=== PATIENT | female | born 1970 | race Caucasian/White ===

== ENCOUNTER 2019-12-01 09:40 | Inpatient (IN) | payer OTHER ==
[~2019-12-01] VITALS: Ht 162.6 cm; Wt 100.0 kg
[2019-12-01] MEDS ORDERED: PHENY100 PO (10:09)
[2019-12-01] MEDS ORDERED: PHEN32.46 PO (10:09)
[2019-12-01] MEDS ORDERED: METF-960 PO (10:09)
[2019-12-01] MEDS ORDERED: 0.9% SODIUM CHLORIDE 10 ML SYRINGE IVP PRN (10:30)
[2019-12-01] MEDS ORDERED: ACETAMINOPHEN 325 MG TABLET PO PRN ×2 (10:30→17:30)
[2019-12-01] MEDS ORDERED: ONDANSETRON HCL 4 MG/2 ML VIAL IVP PRN ×2 (10:30→17:30)
[2019-12-01 10:47] LABS: BASOPHILS % (AUTO) 0.6 % (0.0-2.0); EOSINOPHILS % (AUTO) 1.3 % (1.0-6.0); HEMOGLOBIN 14.8 g/dL (12.0-16.0); LYMPHOCYTES % (AUTO) 19.3 % (22.0-44.0); MEAN CORPUSCULAR HEMOGLOBIN 31.8 pg (26.0-34.0); MEAN CORPUSCULAR HGB CONC 33.6 G/dL (31.0-37.0); MEAN CORPUSCULAR VOLUME 94 fL (80-100); MONOCYTES # (AUTO) 0.6 K/uL (0.1-1.0); NEUTROPHILS # (AUTO) 7.5 K/uL (1.8-7.7); NEUTROPHILS % (AUTO) 72.8 % (40.0-70.0); PLATELET COUNT (AUTO) 337 K/uL (150-450); RED BLOOD CELL COUNT(AUTO) 4.66 MIL/uL (4.00-5.20); RED CELL DISTRIBUTION WIDTH 13.8 % (11.5-14.5)
[2019-12-01 10:55] LABS: ANION GAP 8 mmol/L (8-16); CALCIUM, TOTAL 8.6 mg/dL (8.8-10.5); CARBON DIOXIDE 30 mmol/L (22-29); CHLORIDE 104 mmol/L (98-107); CREATININE 0.84 mg/dL (0.60-1.30); GLOMERULAR FILTR. RATE CALC > 60 mL/min (>60); GLUCOSE,RANDOM 137 mg/dL (70-110); POTASSIUM 3.9 mmol/L (3.5-5.1); SODIUM SERUM 142 mmol/L (136-145); UREA NITROGEN, BLOOD 11 mg/dL (7-18)
[2019-12-01 11:03] LABS: ALANINE AMINOTRANSFERASE 37 U/L (12-78); ALBUMIN 3.4 g/dL (3.4-5.0); ALKALINE PHOSPHATASE 102 U/L (46-116); ASPARTATE AMINOTRANSFERASE 25 U/L (15-37); BILIRUBIN,TOTAL 0.6 mg/dL (0.1-1.0); TOTAL PROTEIN, SERUM 7.4 g/dL (6.4-8.2)
[2019-12-01 12:26] VITALS: BP 130/70
[2019-12-01 15:24] LABS: GLUCOMETER DEV NAME(LOC) 6N.2; GLUCOSE,POINT OF CARE 139 MG/DL (70-110)
[2019-12-01 15:51] VITALS: BP 114/65
[2019-12-01] MEDS ORDERED: MAGNESIUM HYDROXIDE SUSPENSION 30 ML UDCUP PO PRN (17:30)
[2019-12-01] MEDS ORDERED: ALBUTEROL SULFATE 2.5 MG/0.5 ML NEB SOLUTION NEB PRN (17:30)
[2019-12-01] MEDS ORDERED: IPRATROPIUM BROMIDE 0.5 MG/2.5 ML NEB SOLUTION NEB PRN (17:30)
[2019-12-01] MEDS ORDERED: BISACODYL 10 MG RECTAL RECTAL SUPPOSITORY PR PRN (17:30)
[2019-12-01] MEDS ORDERED: DEXTROSE 50%-WATER 25 GM/50 ML SYRINGE IVP PRN (17:45)
[2019-12-01] MEDS: INSULIN LISPRO 100 UNITS/ML SQ PRN ×2 (18:05→20:36)
[2019-12-01] MEDS: MetFORMIN HCL 500 MG TABLET PO SCH (18:11)
[2019-12-01 19:31] LABS: APPEARANCE,URINE CLOUDY (CLEAR); BILIRUBIN,URINE NEGATIVE (NEGATIVE); GLUCOSE, URINE (UA) NEGATIVE (NEGATIVE); KETONES,URINE NEGATIVE (NEGATIVE); LEUKOCYTE ESTERASE ,URINE NEGATIVE (NEGATIVE); NITRATE,URINE NEGATIVE (NEGATIVE); OCCULT BLOOD,URINE TRACE (NEGATIVE); PROTEIN,URINE NEGATIVE (NEGATIVE)
[2019-12-01 19:32] LABS: AMPHET/METH SCREEN,URINE POSITIVE (NEGATIVE); BARBITURATE SCREEN, URINE NEGATIVE (NEGATIVE); BENZODIAZEPINES SCREEN,URINE NEGATIVE (NEGATIVE); CANNABINOID SCREEN,URINE POSITIVE (NEGATIVE); COCAINE SCREEN,URINE NEGATIVE (NEGATIVE); METHADONE SCREEN, URINE NEGATIVE (NEGATIVE); OPIATE SCREEN,URINE NEGATIVE (NEGATIVE)
[2019-12-01 19:33] LABS: PHENCYCLIDINE SCREEN,URINE NEGATIVE (NEGATIVE)
[2019-12-01 19:40] LABS: BACTERIA,URINE Many /HPF (None Seen); SQUAMOUS EPITHELIAL CELL,UR Moderate /LPF (None Seen)
[2019-12-01 20:11] VITALS: BP 120/68
[2019-12-01] MEDS: DOCUSATE SODIUM 100 MG CAPSULE PO SCH (20:32)
[2019-12-01 20:33] LABS: GLUCOMETER DEV NAME(LOC) 6N.2; GLUCOSE,POINT OF CARE 125 MG/DL (70-110)
[2019-12-01 22:28] LABS: GLUCOMETER DEV NAME(LOC) 6N.2; GLUCOSE,POINT OF CARE 199 MG/DL (70-110)
[2019-12-01] MEDS: HEPARIN SODIUM,PORCINE 5,000 UNITS/ML VIAL SQ SCH (23:38)
[2019-12-01 23:44] VITALS: BP 122/58
[2019-12-02 05:00] VITALS: BP 123/77
[2019-12-02] MEDS: INSULIN LISPRO 100 UNITS/ML SQ PRN (06:47)
[2019-12-02 07:32] VITALS: BP 102/74
[2019-12-02] MEDS: MetFORMIN HCL 500 MG TABLET PO SCH ×2 (08:03→18:18)
[2019-12-02] MEDS: PHENYTOIN SODIUM 100 MG ER CAPSULE PO SCH (08:03)
[2019-12-02] MEDS: PHENobarbital 30 MG TABLET PO SCH (08:03)
[2019-12-02] MEDS: DOCUSATE SODIUM 100 MG CAPSULE PO SCH ×2 (08:03→20:06)
[2019-12-02] MEDS: HEPARIN SODIUM,PORCINE 5,000 UNITS/ML VIAL SQ SCH ×3 (08:04→23:58)
[2019-12-02 08:16] LABS: GLUCOMETER DEV NAME(LOC) 6N.1; GLUCOSE,POINT OF CARE 156 MG/DL (70-110)
[2019-12-02 12:10] LABS: GLUCOMETER DEV NAME(LOC) 6N.1; GLUCOSE,POINT OF CARE 88 MG/DL (70-110)
[2019-12-02 15:04] VITALS: BP 128/82
[2019-12-02 20:00] VITALS: BP 94/55
[2019-12-02] MEDS: RisperiDONE 1 MG TABLET PO SCH (20:07)
[2019-12-03 01:00] LABS: GLUCOMETER DEV NAME(LOC) 6N.1; GLUCOSE,POINT OF CARE 119 MG/DL (70-110)
[2019-12-03 01:00] LABS: GLUCOMETER DEV NAME(LOC) 6N.1; GLUCOSE,POINT OF CARE 138 MG/DL (70-110)
[2019-12-03 04:00] VITALS: BP 123/79
[2019-12-03] MEDS: INSULIN LISPRO 100 UNITS/ML SQ PRN ×4 (05:50→20:19)
[2019-12-03 07:38] VITALS: BP 106/62
[2019-12-03] MEDS: PHENYTOIN SODIUM 100 MG ER CAPSULE PO SCH (08:24)
[2019-12-03] MEDS: MetFORMIN HCL 500 MG TABLET PO SCH ×2 (08:24→17:03)
[2019-12-03] MEDS: DOCUSATE SODIUM 100 MG CAPSULE PO SCH ×2 (08:24→20:21)
[2019-12-03] MEDS: HEPARIN SODIUM,PORCINE 5,000 UNITS/ML VIAL SQ SCH ×2 (08:24→16:16)
[2019-12-03] MEDS: PHENobarbital 30 MG TABLET PO SCH (08:28)
[2019-12-03 11:04] LABS: GLUCOMETER DEV NAME(LOC) 6N.2; GLUCOSE,POINT OF CARE 157 MG/DL (70-110)
[2019-12-03 15:38] VITALS: BP 116/70
[2019-12-03 15:54] LABS: BASOPHILS % (AUTO) 1.1 % (0.0-2.0); EOSINOPHILS % (AUTO) 2.8 % (1.0-6.0); HEMOGLOBIN 13.9 g/dL (12.0-16.0); LYMPHOCYTES # (AUTO) 2.8 K/uL (1.0-4.8); LYMPHOCYTES % (AUTO) 33.9 % (22.0-44.0); MEAN CORPUSCULAR HEMOGLOBIN 31.3 pg (26.0-34.0); MEAN CORPUSCULAR HGB CONC 33.2 G/dL (31.0-37.0); MEAN CORPUSCULAR VOLUME 95 fL (80-100); MONOCYTES # (AUTO) 0.6 K/uL (0.1-1.0); MONOCYTES % (AUTO) 6.7 % (2.0-9.0); NEUTROPHILS # (AUTO) 4.6 K/uL (1.8-7.7); NEUTROPHILS % (AUTO) 55.5 % (40.0-70.0); PLATELET COUNT (AUTO) 321 K/uL (150-450); RED BLOOD CELL COUNT(AUTO) 4.44 MIL/uL (4.00-5.20); RED CELL DISTRIBUTION WIDTH 14.1 % (11.5-14.5)
[2019-12-03 19:30] VITALS: BP 124/69
[2019-12-03] MEDS: RisperiDONE 1 MG TABLET PO SCH (20:19)
[2019-12-03] MEDS: CEPHALEXIN MONOHYDRATE 500 MG CAPSULE PO SCH (20:19)
[2019-12-04] MEDS: HEPARIN SODIUM,PORCINE 5,000 UNITS/ML VIAL SQ SCH ×3 (00:22→16:07)
[2019-12-04 07:50] VITALS: BP 112/72
[2019-12-04 08:09] LABS: GLUCOMETER DEV NAME(LOC) 6N.2; GLUCOSE,POINT OF CARE 119 MG/DL (70-110)
[2019-12-04 08:09] LABS: GLUCOMETER DEV NAME(LOC) 6N.2; GLUCOSE,POINT OF CARE 150 MG/DL (70-110)
[2019-12-04] MEDS: DOCUSATE SODIUM 100 MG CAPSULE PO SCH ×2 (08:43→20:20)
[2019-12-04] MEDS: PHENobarbital 30 MG TABLET PO SCH (08:43)
[2019-12-04] MEDS: MetFORMIN HCL 500 MG TABLET PO SCH ×2 (08:43→17:15)
[2019-12-04] MEDS: CEPHALEXIN MONOHYDRATE 500 MG CAPSULE PO SCH ×2 (08:43→20:20)
[2019-12-04] MEDS: PHENYTOIN SODIUM 100 MG ER CAPSULE PO SCH (09:00)
[2019-12-04] MEDS: INSULIN LISPRO 100 UNITS/ML SQ PRN ×2 (12:00→17:15)
[2019-12-04 15:10] VITALS: BP_SYST 117; BP_DIAS 67; BP_DIAS 7
[2019-12-04 17:28] LABS: GLUCOMETER DEV NAME(LOC) 6N.1; GLUCOSE,POINT OF CARE 121 MG/DL (70-110)
[2019-12-04 17:28] LABS: GLUCOMETER DEV NAME(LOC) 6N.1; GLUCOSE,POINT OF CARE 104 MG/DL (70-110)
[2019-12-04 20:00] VITALS: BP 118/67
[2019-12-04 20:07] LABS: GLUCOMETER DEV NAME(LOC) 6N.2; GLUCOSE,POINT OF CARE 99 MG/DL (70-110)
[2019-12-04 20:07] LABS: GLUCOMETER DEV NAME(LOC) 6N.2; GLUCOSE,POINT OF CARE 90 MG/DL (70-110)
[2019-12-04] MEDS: RisperiDONE 1 MG TABLET PO SCH (20:20)
[2019-12-04 22:14] LABS: GLUCOMETER DEV NAME(LOC) 6N.2; GLUCOSE,POINT OF CARE 133 MG/DL (70-110)
[2019-12-05] MEDS: HEPARIN SODIUM,PORCINE 5,000 UNITS/ML VIAL SQ SCH ×4 (00:01→23:24)
[2019-12-05 04:00] VITALS: BP 115/76
[2019-12-05 08:00] VITALS: BP 108/71
[2019-12-05] MEDS: MetFORMIN HCL 500 MG TABLET PO SCH ×2 (09:00→18:13)
[2019-12-05] MEDS: CEPHALEXIN MONOHYDRATE 500 MG CAPSULE PO SCH ×2 (09:00→19:55)
[2019-12-05] MEDS: PHENobarbital 30 MG TABLET PO SCH (09:00)
[2019-12-05] MEDS: DOCUSATE SODIUM 100 MG CAPSULE PO SCH ×2 (09:01→19:57)
[2019-12-05] MEDS: PHENYTOIN SODIUM 100 MG ER CAPSULE PO SCH (09:01)
[2019-12-05 19:14] VITALS: BP 106/65
[2019-12-05 19:28] LABS: GLUCOMETER DEV NAME(LOC) 6N.1; GLUCOSE,POINT OF CARE 116 MG/DL (70-110)
[2019-12-05 19:28] LABS: GLUCOMETER DEV NAME(LOC) 6N.1; GLUCOSE,POINT OF CARE 138 MG/DL (70-110)
[2019-12-05 19:28] LABS: GLUCOMETER DEV NAME(LOC) 6N.1; GLUCOSE,POINT OF CARE 95 MG/DL (70-110)
[2019-12-05] MEDS: RisperiDONE 1 MG TABLET PO SCH (19:55)
[2019-12-06 03:33] VITALS: BP 115/69
[2019-12-06 06:11] LABS: GLUCOMETER DEV NAME(LOC) 6N.2; GLUCOSE,POINT OF CARE 119 MG/DL (70-110)
[2019-12-06 07:56] VITALS: BP 127/73
[2019-12-06] MEDS: PHENYTOIN SODIUM 100 MG ER CAPSULE PO SCH (08:29)
[2019-12-06] MEDS: HEPARIN SODIUM,PORCINE 5,000 UNITS/ML VIAL SQ SCH ×2 (08:29→17:44)
[2019-12-06] MEDS: PHENobarbital 30 MG TABLET PO SCH (08:30)
[2019-12-06] MEDS: MetFORMIN HCL 500 MG TABLET PO SCH ×2 (08:30→17:43)
[2019-12-06] MEDS: DOCUSATE SODIUM 100 MG CAPSULE PO SCH (08:30)
[2019-12-06] MEDS: CEPHALEXIN MONOHYDRATE 500 MG CAPSULE PO SCH ×2 (08:36→20:11)
[2019-12-06] MEDS ORDERED: PHEN30TA41 PO (11:14)
[2019-12-06] MEDS: INSULIN LISPRO 100 UNITS/ML SQ PRN ×3 (12:10→20:11)
[2019-12-06 16:28] VITALS: BP 104/70
[2019-12-06 19:56] LABS: GLUCOMETER DEV NAME(LOC) 6N.2; GLUCOSE,POINT OF CARE 140 MG/DL (70-110)
[2019-12-06 19:56] LABS: GLUCOMETER DEV NAME(LOC) 6N.2; GLUCOSE,POINT OF CARE 99 MG/DL (70-110)
[2019-12-06 19:56] LABS: GLUCOMETER DEV NAME(LOC) 6N.2; GLUCOSE,POINT OF CARE 87 MG/DL (70-110)
[2019-12-06 20:00] VITALS: BP 119/75
[2019-12-06] MEDS: ZOLPIDEM TARTRATE 5 MG TABLET PO PRN (20:11)
[2019-12-06] MEDS: RisperiDONE 1 MG TABLET PO SCH (20:11)
[2019-12-07] MEDS: HEPARIN SODIUM,PORCINE 5,000 UNITS/ML VIAL SQ SCH ×3 (00:26→17:09)
[2019-12-07 04:58] VITALS: BP 111/65
[2019-12-07 07:49] VITALS: BP 108/70
[2019-12-07] MEDS: PHENobarbital 30 MG TABLET PO SCH (08:14)
[2019-12-07] MEDS: PHENYTOIN SODIUM 100 MG ER CAPSULE PO SCH (08:14)
[2019-12-07] MEDS: MetFORMIN HCL 500 MG TABLET PO SCH ×2 (08:14→17:09)
[2019-12-07] MEDS: CEPHALEXIN MONOHYDRATE 500 MG CAPSULE PO SCH ×2 (08:14→21:03)
[2019-12-07] MEDS: RisperiDONE 1 MG TABLET PO SCH ×2 (08:14→21:03)
[2019-12-07 12:07] LABS: GLUCOMETER DEV NAME(LOC) 6N.1; GLUCOSE,POINT OF CARE 144 MG/DL (70-110)
[2019-12-07 12:07] LABS: GLUCOMETER DEV NAME(LOC) 6N.1; GLUCOSE,POINT OF CARE 119 MG/DL (70-110)
[2019-12-07 13:22] LABS: GLUCOMETER DEV NAME(LOC) 6N.2; GLUCOSE,POINT OF CARE 123 MG/DL (70-110)
[2019-12-07 16:01] VITALS: BP 95/60
[2019-12-07 18:52] LABS: GLUCOMETER DEV NAME(LOC) 6N.1; GLUCOSE,POINT OF CARE 101 MG/DL (70-110)
[2019-12-07 19:38] VITALS: BP 105/68
[2019-12-08] MEDS: HEPARIN SODIUM,PORCINE 5,000 UNITS/ML VIAL SQ SCH ×3 (00:12→16:36)
[2019-12-08 04:19] VITALS: BP 103/60
[2019-12-08] MEDS: RisperiDONE 1 MG TABLET PO SCH ×2 (08:06→20:30)
[2019-12-08] MEDS: PHENYTOIN SODIUM 100 MG ER CAPSULE PO SCH (08:06)
[2019-12-08] MEDS: CEPHALEXIN MONOHYDRATE 500 MG CAPSULE PO SCH ×2 (08:06→20:30)
[2019-12-08] MEDS: MetFORMIN HCL 500 MG TABLET PO SCH ×2 (08:06→17:10)
[2019-12-08] MEDS: PHENobarbital 30 MG TABLET PO SCH (08:06)
[2019-12-08 08:18] VITALS: BP 118/71
[2019-12-08] MEDS ORDERED: LORazepam 2 MG/ML VIAL IVP PRN (14:15)
[2019-12-08 15:53] VITALS: BP_SYST 131; BP_DIAS 3; BP_DIAS 63
[2019-12-08 17:17] LABS: GLUCOMETER DEV NAME(LOC) 6N.2; GLUCOSE,POINT OF CARE 114 MG/DL (70-110)
[2019-12-08 20:23] VITALS: BP 110/63
[2019-12-09] MEDS: HEPARIN SODIUM,PORCINE 5,000 UNITS/ML VIAL SQ SCH ×3 (00:15→16:40)
[2019-12-09 04:35] VITALS: BP 109/60
[2019-12-09 06:07] LABS: GLUCOMETER DEV NAME(LOC) 6N.1; GLUCOSE,POINT OF CARE 95 MG/DL (70-110)
[2019-12-09 06:08] LABS: GLUCOMETER DEV NAME(LOC) 6N.1; GLUCOSE,POINT OF CARE 135 MG/DL (70-110)
[2019-12-09 06:08] LABS: GLUCOMETER DEV NAME(LOC) 6N.1; GLUCOSE,POINT OF CARE 117 MG/DL (70-110)
[2019-12-09] MEDS: MetFORMIN HCL 500 MG TABLET PO SCH ×2 (08:14→17:13)
[2019-12-09] MEDS: PHENYTOIN SODIUM 100 MG ER CAPSULE PO SCH (08:14)
[2019-12-09] MEDS: PHENobarbital 30 MG TABLET PO SCH (08:14)
[2019-12-09] MEDS: RisperiDONE 1 MG TABLET PO SCH ×2 (08:14→19:59)
[2019-12-09 08:15] VITALS: BP 101/65
[2019-12-09] MEDS: INSULIN LISPRO 100 UNITS/ML SQ PRN (11:58)
[2019-12-09 15:15] VITALS: BP 128/76
[2019-12-09] MEDS ORDERED: RISP1 PO (16:05)
[2019-12-09 19:17] LABS: GLUCOMETER DEV NAME(LOC) 6N.1; GLUCOSE,POINT OF CARE 104 MG/DL (70-110)
[2019-12-09] MEDS: ZOLPIDEM TARTRATE 5 MG TABLET PO PRN (19:59)
[2019-12-09 20:00] VITALS: BP 107/62
[2019-12-09 20:58] LABS: GLUCOMETER DEV NAME(LOC) 6N.2; GLUCOSE,POINT OF CARE 119 MG/DL (70-110)
[2019-12-09 20:58] LABS: GLUCOMETER DEV NAME(LOC) 6N.2; GLUCOSE,POINT OF CARE 155 MG/DL (70-110)
[2019-12-09 20:58] LABS: GLUCOMETER DEV NAME(LOC) 6N.2; GLUCOSE,POINT OF CARE 140 MG/DL (70-110)
[2019-12-10] MEDS: HEPARIN SODIUM,PORCINE 5,000 UNITS/ML VIAL SQ SCH
[2019-12-10 04:37] VITALS: BP 110/55
[2019-12-10 20:17] LABS: GLUCOMETER DEV NAME(LOC) 6N.2; GLUCOSE,POINT OF CARE 126 MG/DL (70-110)
== END 2019-12-10 06:51 | DRG 885 ==
LOC: EMS 09:45 → 6S 10:33
PROVIDERS: ADMIT Internal Medicine; ATTEND Hospitalist
DX: F20.9 Schizophrenia, unspecified (principal); N39.0 Urinary tract infection, site not specified; G40.909 Epilepsy, unspecified, not intractable, without status epilepticus; F17.210 Nicotine dependence, cigarettes, uncomplicated; E11.9 Type 2 diabetes mellitus without complications; I10 Essential (primary) hypertension; F41.9 Anxiety disorder, unspecified
CPT/HCPCS: 87086; 96372; G0480; J1644